=== PATIENT | male | born 1960 | race Caucasian/White ===

== ENCOUNTER → 2021-02-04 | Day surgery (SDC) | payer MEDICAID ==
[~2021-02-04] MED LIST: Ketamine 200 MG/20 ML MDV ONE; Lactated Ringers 1,000 ML IV SCH; Propofol 200 MG/20 ML SDV ONE; fentaNYL 100 MCG/2 ML SDV ONE
--- NOTE | 2021-02-04 13:18 | OR ---
DATE OF OPERATION: 02/04/2021 PREOPERATIVE DIAGNOSIS: SCREENING COLONOSCOPY. POSTOPERATIVE DIAGNOSIS: SCREENING COLONOSCOPY. SURGEON: Singh Sewell MD PROCEDURE: FULL-LENGTH COLONOSCOPY WITH SNARE POLYPECTOMY X1. ANESTHESIA: MAC. COMPLICATIONS: None. SPECIMEN: Tubular adenoma, rectosigmoid junction approximately 5 mm. FINDINGS: 1. Full-length screening colonoscopy. 2. Tubular adenoma, rectosigmoid junction. RECOMMENDATIONS: Followup colonoscopy in 5 years. INDICATIONS: Patient was seen for a physical. He is well overdue for routine screening exam given his age and he agreed to proceed. DESCRIPTION OF PROCEDURE: The patient was prepped and draped, placed in the left lateral decubitus position. A lubricated Olympus colonoscope was inserted and with ease advanced to the cecum. Direct visualization of the ileocecal valve and appendiceal orifice was accomplished. The bowel prep was adequate. Upon withdrawal of the scope, the cecum, ascending, and transverse colons were completely benign. Throughout the entire left colon, I could find no signs of any colitis, vascular abnormality, bleeding sites, or diverticula. In the rectosigmoid junction, patient had a small stalked tubular adenoma, approximately 4-5 mm, removed with a snare and suctioned into polyp trap #1 without difficulty. The rectal vault appeared benign. Retroflexion showed no perianal lesions. Air was suctioned. Scope removed without complication. LEANNE/DWIGHT /[id number]
== END ==
LOC: CC.SDS 10:03
PROVIDERS: ATTEND Family Medicine
DX: Z12.11 Encounter for screening for malignant neoplasm of colon (principal); D12.7 Benign neoplasm of rectosigmoid junction; F41.1 Generalized anxiety disorder; Z79.899 Other long term (current) drug therapy; N40.1 Benign prostatic hyperplasia with lower urinary tract symptoms; R35.1 Nocturia; E66.9 Obesity, unspecified; Z68.36 Body mass index [BMI] 36.0-36.9, adult
CPT/HCPCS: 45385; J2704; J3010; J7120; 00812